=== PATIENT | male | born 2000 | race Caucasian/White ===

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

== ENCOUNTER 2022-11-19 21:01 | Emergency (ER) | payer OTHER ==
[2022-11-19 21:13] VITALS: BP 120/80
--- NOTE | 2022-11-19 21:39 | ED Physician Documentation ---
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 He denies loss of consciousness, but did experience a generalized headache which he describes as mild , associated with nausea but no vomiting, blurry vision. He continued to work but he noted that he was having difficulty with routines that he had performed countless times and subsequently was talking to a customer and had to apologize because he was having difficulty with word finding. He thus comes to the emergency department for further evaluation. He says that the headache has been episodic, at times resolving completely, and at worst only mild. The nausea, blurry vision, and difficulty with speaking/word finding have all resolved. Review of Systems Eyes: reports: Decreased vision (blurry vision, resolved) Ears: denies: Tinnitus/ringing GI: reports: Nausea. denies: Vomiting Musculoskeletal: denies: Neck pain Neurologic: reports: Headache, Head injury. denies: Generalized weakness, Focal weakness, Numbness, LOC PD PAST MEDICAL HISTORY - Past Medical History Cardiovascular: None Respiratory: None Neuro: None Endocrine/Autoimmune: None GI: None : None HEENT: None Psych: Depression Musculoskeletal: None Derm: None - Past Surgical History Past Surgical History: No - Present Medications Home Medications: Ambulatory Orders Medication Instructions Recorded Confirmed FLUoxetine [PROzac] 10 mg 02/02/18 No Known Home Medications 02/02/18 02/02/18 - Allergies Allergies/Adverse Reactions: Allergies Allergy/AdvReac Type Severity Reaction Status Date / Time No Known Drug Allergies Allergy Verified 11/19/22 21:06 - Social History Does the pt smoke?: No Smoking Status: Never smoker Does the pt drink ETOH?: No Does the pt have substance abuse?: No - Immunizations Immunizations are current?: Yes - POLST Patient has POLST: No PD ED PE NORMAL - Vitals Vital signs reviewed: Yes - General General: Alert and oriented X 3, No acute distress, Well developed/nourished - HEENT HEENT: Atraumatic, PERRL, EOMI, Other (no scalp swelling, tenderness, echymosis, abrasion, laceration; no periorbital echymosis, no postauricular echymosis) - Neck Neck: No bony TTP - Neuro Neuro: Alert and oriented X 3, management associate 2-12 intact, No motor deficit, No sensory deficit, Normal speech Eye Opening: Spontaneous Motor: Obeys Commands Verbal: Oriented GCS Score: 15 Results - Vitals Vitals: Vital Signs - 24 hr 11/19/22 21:06 Temperature 36.5 C Heart Rate 71 Respiratory 16 Rate Blood Pressure 120/80 O2 Saturation 100 Oxygen O2 Source Room air PD Medical Decision Making - ED course Complexity details: considered differential, d/w patient ED course: Patient presents several hours after head injury with resolution of all of the signs and symptoms except for occasional/episodic headache which he describes as a mild. He has a normal physical exam with focus on neurologic exam. As noted in physical exam, above, there is also no evidence of injury on the scalp exam such as tenderness or swelling. No emergent testing is indicated at this time (such as CT scan of the head). Return precautions are carefully reviewed. Departure - Departure Disposition: 01 Home, Self Care Clinical Impression: Concussion Condition: Good Instructions: ED Concussion Forms: PCP List, Activity restrictions
== END 2022-11-19 22:07 | disposition home or self-care (01) ==
LOC: ED 21:01
DX: S06.0X0A Concussion without loss of consciousness, initial encounter (principal); R40.2412 Glasgow coma scale score 13-15, at arrival to emergency department; W22.09XA Striking against other stationary object, initial encounter; Y93.89 Activity, other specified
CPT/HCPCS: 99281; 99282

== ENCOUNTER 2023-08-12 20:32 | Emergency (ER) | payer OTHER ==
[2023-08-12 20:57] VITALS: O2SAT 100
--- NOTE | 2023-08-12 21:08 | ED Physician Documentation ---
PD HPI URI - Stated complaint Stated Complaint: RASH/FEVER - Chief complaint Chief Complaint: Fever - History obtained from History obtained from: Patient - History of Present Illness Timing - onset: How many days ago (2-3) Timing duration: Days (2-3) Timing details: Abrupt onset, Gradual onset Pain level max: 3 Pain level now: 3 Associated symptoms: Fever, Nasal congestion, Rhinorrhea. No: Ear pain, Sore throat, Hemoptysis, Chest pain Contributing factors: No: Sick contact Improves by: Rest Recently seen: Not recently seen - Additional information Additional information: 22-year-old male presents to the emergency department with fever, cough, congestion and a rash on his neck. Started a couple of days ago and has progressed since that time. Tmax 101. No nausea, vomiting, diarrhea. The cough is mostly dry. He states that he does not have any sore throat. He states he has mild neck stiffness as well. Has not taken anything for his symptoms. Review of Systems Constitutional: reports: Fever Ears: denies: Ear pain Nose: denies: Rhinorrhea / runny nose, Congestion Cardiac: denies: Chest pain / pressure Respiratory: reports: Cough GI: denies: Vomiting, Diarrhea Musculoskeletal: denies: Back pain Neurologic: denies: Focal weakness, Numbness, Seizure, Confused, Headache, Head injury, LOC PD PAST MEDICAL HISTORY - Past Medical History Past Medical History: Yes Cardiovascular: None Respiratory: None Neuro: None Endocrine/Autoimmune: None GI: None : None HEENT: None Psych: Depression, Bipolar disorder Musculoskeletal: None Derm: None - Past Surgical History Past Surgical History: No - Present Medications Home Medications: Ambulatory Orders Medication Instructions Recorded Confirmed FLUoxetine [PROzac] 10 mg 02/02/18 No Known Home Medications 02/02/18 02/02/18 - Allergies Allergies/Adverse Reactions: Allergies Allergy/AdvReac Type Severity Reaction Status Date / Time No Known Drug Allergies Allergy Verified 08/12/23 21:41 - Social History Does the pt smoke?: No Smoking Status: Never smoker Does the pt drink ETOH?: No Does the pt have substance abuse?: No - Immunizations Immunizations are current?: Yes - POLST Patient has POLST: No PD ED PE NORMAL - Vitals Vital signs reviewed: Yes - General General: Alert and oriented X 3, No acute distress - HEENT HEENT: PERRL, Ears normal, Moist mucous membranes - Neck Neck: Supple, no meningeal sign, Other (Moving the neck freely without any meningeal signs.) - Cardiac Cardiac: RRR, No murmur - Respiratory Respiratory: Clear bilaterally - Abdomen Abdomen: Normal bowel sounds, Soft, Non tender, Non distended - Derm Derm: Warm and dry, Other (Patient has a slight maculopapular exanthem across the upper neck and upper chest. Blanches easily. No pustules or vesicles.) - Extremities Extremities: No deformity - Neuro Neuro: Alert and oriented X 3 - Psych Psych: Normal mood, Normal affect Results - Vitals Vitals: Vital Signs - 24 hr 08/12/23 20:52 Temperature 37.7 C Heart Rate 88 Respiratory 19 Rate Blood Pressure 136/72 H O2 Saturation 100 Oxygen O2 Source Room air - Labs Labs: Laboratory Tests 08/12/23 08/12/23 21:03 21:13 Nasal Adenovirus (PCR) NOT DETECTED Nasal B. parapertussis DNA (PCR) NOT DETECTED Nasal Coronavir 229E PCR NOT DETECTED Nasal Coronavir HKU1 PCR NOT DETECTED Nasal Coronavir NL63 PCR NOT DETECTED Nasal Coronavir OC43 PCR NOT DETECTED Nasal Enterovir/Rhinovir PCR DETECTED A Nasal Influenza B PCR NOT DETECTED Nasal Influenza A PCR NOT DETECTED Nasal Parainfluen 1 PCR NOT DETECTED Nasal Parainfluen 2 PCR NOT DETECTED Nasal Parainfluen 3 PCR NOT DETECTED Nasal Parainfluen 4 PCR NOT DETECTED Nasal RSV (PCR) NOT DETECTED Nasal B.pertussis DNA PCR NOT DETECTED Nasal C.pneumoniae (PCR) NOT DETECTED [place] Human Metapneumo PCR NOT DETECTED Nasal M.pneumoniae (PCR) NOT DETECTED Nasal SARS-CoV-2 (PCR) NOT DETECTED Group A Strep Rapid Negative PD Medical Decision Making - ED course Complexity details: reviewed results, re-evaluated patient, considered differential, d/w patient ED course: Patient is well-appearing, nontoxic. Afebrile. Full range of motion of the neck without any meningeal signs. He is looking down playing on his cell phone while resting in the emergency department. No indication for lumbar puncture. No evidence of meningitis. Patient is positive for rhinovirus/enterovirus. We will continue supportive care for viral illness. Will have him follow-up with his doctor for further care. Continue Motrin and Tylenol as needed for pain/fever at home. Patient counseled regarding signs and symptoms for which I believe and urgent re-evaluation would be necessary. Patient with good underst anding of and agreement to plan and is comfortable going home at this time This document was made in part using voice recognition software. While efforts are made to proofread this document, sound alike and grammatical errors may occur. Departure - Departure Disposition: 01 Home, Self Care Clinical Impression: Rhinovirus infection Condition: Good Instructions: ED Viral Syndrome Follow-Up: your,doctor as needed [Other] Comments: You have tested positive for enterovirus/rhinovirus today. These are viral illnesses. You can use Motrin or Tylenol as needed for any pain and/or fever. Please follow-up with your doctor as needed for any further care. These illnesses will resolve on their own. Forms: PCP List
[2023-08-12 21:28] LABS: RAPID STREP SCREEN Negative (Negative)
[2023-08-12 22:15] LABS: B. PARAPERTUSSIS- RESP PCR PAN NOT DETECTED; B. PERTUSSIS- RESP PCR PANEL NOT DETECTED; C. PNEUMONIAE- RESP PCR PANEL NOT DETECTED; CORONAVIRUS 229E-RESP PCR NOT DETECTED; CORONAVIRUS HKU1-RESP PCR NOT DETECTED; CORONAVIRUS NL63-RESP PCR NOT DETECTED; CORONAVIRUS OC43-RESP PCR NOT DETECTED; HUMAN METAPNEUMOVIRUS NOT DETECTED; INFLUENZA A- RESP PCR PANEL NOT DETECTED; INFLUENZA B - RESP PCR PANEL NOT DETECTED; M. PNEUMONIAE- RESP PCR PANEL NOT DETECTED; PARAINFLUENZA VIRUS 1 NOT DETECTED; PARAINFLUENZA VIRUS 2 NOT DETECTED; PARAINFLUENZA VIRUS 3 NOT DETECTED; PARAINFLUENZA VIRUS 4 NOT DETECTED; RHINOVIRUS/ENTEROVIRUS DETECTED; RSV- RESP PCR PANEL NOT DETECTED; SARS-CoV-2 -RESP PCR PANEL NOT DETECTED
[2023-08-12 23:09] VITALS: BP 128/70
== END 2023-08-12 23:00 | disposition home or self-care (01) ==
LOC: ED 20:32
DX: B34.8 Other viral infections of unspecified site (principal)
CPT/HCPCS: 87070; 87430; 87633; 99283